=== PATIENT | female | born 1990 | race Caucasian/White ===

== ENCOUNTER 2022-12-16 11:28 | Outpatient (REF) | payer OTHER, SELFPAY ==
--- NOTE | 2022-12-16 10:45 | PAPFT_PTH ---
PATIENT: Lydia Buenrostro LOC: [facility] U#:[id number] AGE/SX: 32/F ROOM: RE12/16/[address]: Adia Tim NP : 1990 BED: DIS: 12/16/2022 SPEC #: [id number] RECD: 12/16/22 17:53 STATUS: DASHAWN REJane #: [id number] TERESA: 12/16/22 10:[address]: Adia Tim NP DEPT: [facility] Cytology RECD BY: Donna Porter ENTERED: 12/16/22 17:54 SP TYPE: PAPFT OTHR DR: Isaac Meade Tissues: 1 - CX/ENDOCX FOR PAP SMEARS Procedures: PAP THIN PREP/UVM Screening HPV DNA PROBE Comments: [id number]
== END 2022-12-16 11:29 | disposition home or self-care (01) ==
LOC: LBN 11:28
PROVIDERS: PCP Nurse Practitioner Family; Visit Provider Nurse Practitioner Women's Health
DX: Z12.4 Encounter for screening for malignant neoplasm of cervix (principal); Z11.51 Encounter for screening for human papillomavirus (HPV)
CPT/HCPCS: 88142; 87624

== ENCOUNTER 2023-10-16 01:37 | Outpatient (CLI) | payer OTHER, SELFPAY ==
[2023-10-16 12:16] LABS: Panorama Kit Sent via Fed Ex
[2023-10-16 12:31] LABS: Abs Immature Grans 0.02 10^3/uL (0.0-0.06); Absolute Basophil Count 0.05 10^3/uL (0.0-0.2); Absolute Eosinophil Count 0.03 10^3/uL (0.0-0.7); Absolute Lymphocyte Count 2.43 10^3/uL (1.2-3.4); Absolute Monocyte Count 0.45 10^3/uL (0.1-0.8); Absolute Neutrophil Count 5.13 10^3/uL (1.2-6.7); Basophils % 0.6; Eosinophils % 0.4; HCT 36.9 % (36.0-46.0); HGB 12.7 g/dL (11.2-15.7); Immature Grans % 0.2; MCH 31.1 pg (27.0-33.0); MCHC 34.4 % (32.0-36.0); MCV 90 fL (80-95); MPV 9.6 fL (8.0-11.0); Monocytes % 5.5; Neutrophils % 63.3; Platelet Count 241 10^3/uL (130-400); RBC 4.08 10^6/uL (3.93-5.22); RDW-SD 39.8 fL; WBC 8.11 10^3/uL (4.4-10.8)
[2023-10-16 13:21] LABS: FREE T4 1.19 ng/dL (0.76-1.46)
[2023-10-18 12:09] LABS: HIV-1/2 Ag & Ab Screen Negative (Negative)
[2023-10-19 09:05] LABS: Rubella IgG Ab (UVM) Positive (See Note); Varicella IgG Antibody Positive (See Note)
[2023-10-19 11:04] LABS: Hepatitis B Surface Ag Negative (Negative)
[2023-10-19 17:26] LABS: Hepatitis C Ab w Rflx HCV PCR Negative (Negative)
[2023-10-20 13:50] LABS: Syphilis IgG w/Reflex Nonreactive (Nonreactive)
== END 2023-10-16 01:38 | disposition home or self-care (01) ==
LOC: LBO 01:37
PROVIDERS: PCP Physician Assistant; Visit Provider Advanced Practice Midwife
DX: Z34.91 Encounter for supervision of normal pregnancy, unspecified, first trimester
CPT/HCPCS: 36415; 86787; 86803; 86850; 86900; 86901; 87340; 87389; 84439; 84443; 85025; 86762; 86780

== ENCOUNTER 2023-10-16 11:10 | Outpatient (REF) | payer OTHER, SELFPAY ==
[2023-10-16 13:49] LABS: *AMPHETAMINES SCREEN URINE Negative (Negative); *BARBITURATES SCREEN URINE Negative (Negative); *BENZODIAZEPINES SCREEN URINE Negative (Negative); Cannabinoids THC Negative (Negative); Cocaine Screen,Urine Negative (Negative); METHADONE URINE SCREEN Negative (Negative); OPIATES URINE SCREEN Negative (Negative)
[2023-10-16 13:50] LABS: Tricyclic Antidepressants Negative (Negative)
[2023-10-17 13:08] LABS: Chlamydia Result Negative (Negative); GC Result Negative (Negative)
[2023-10-22 07:38] LABS: Buprenorphine Negative ng/mL (Cutoff: 5.0); Norbuprenorphine Negative ng/mL (Cutoff: 2.5)
== END 2023-10-16 11:11 | disposition home or self-care (01) ==
LOC: LBN 11:10
PROVIDERS: PCP Physician Assistant; Visit Provider Advanced Practice Midwife
DX: Z34.91 Encounter for supervision of normal pregnancy, unspecified, first trimester
CPT/HCPCS: 80307; 80348; 87491; 87591; 87086

== ENCOUNTER 2023-11-17 02:37 | Outpatient (CLI) | payer OTHER, SELFPAY ==
[2023-11-17 14:36] LABS: TSH 0.28 uIU/mL (0.36-3.74)
[2023-11-17 16:45] LABS: FREE T4 1.28 ng/dL (0.76-1.46)
[2023-11-17 17:18] LABS: Lab Add On Test DONE
== END 2023-11-17 02:38 | disposition home or self-care (01) ==
LOC: LBO 02:37
PROVIDERS: PCP Physician Assistant; Visit Provider Advanced Practice Midwife
DX: E03.9 Hypothyroidism, unspecified (principal)
CPT/HCPCS: 36415; 84439; 84443

== ENCOUNTER 2023-12-29 03:39 | Outpatient (CLI) | payer OTHER, SELFPAY ==
[2023-12-29 08:17] LABS: TSH (W/Ref FT4) 0.09 uIU/mL (0.36-3.74)
[2023-12-29 08:33] LABS: FREE T4 1.31 ng/dL (0.76-1.46)
== END 2023-12-29 03:40 | disposition home or self-care (01) ==
LOC: LBO 03:40
PROVIDERS: PCP Physician Assistant; Visit Provider Advanced Practice Midwife
DX: E03.9 Hypothyroidism, unspecified (principal)
CPT/HCPCS: 36415; 84439; 84443

== ENCOUNTER 2024-02-09 05:18 | Outpatient (CLI) | payer OTHER, SELFPAY ==
[2024-02-09 10:53] LABS: HCT 34.2 % (36.0-46.0); HGB 11.5 g/dL (11.2-15.7); MCH 31.9 pg (27.0-33.0); MCHC 33.6 % (32.0-36.0); MCV 95 fL (80-95); MPV 9.7 fL (8.0-11.0); Platelet Count 221 10^3/uL (130-400); RBC 3.61 10^6/uL (3.93-5.22); RDW 12.6 % (11.7-14.6); RDW-SD 44.1 fL; WBC 7.38 10^3/uL (4.4-10.8)
[2024-02-09 11:00] LABS: Glucose,1 Hr (Glucola) 96 mg/dL (80-140)
[2024-02-10 09:35] LABS: Lab Add On Test DONE
[2024-02-10 10:51] LABS: TSH (W/Ref FT4) 0.05 uIU/mL (0.36-3.74)
== END 2024-02-09 05:19 | disposition home or self-care (01) ==
LOC: LBO 05:18
PROVIDERS: PCP Physician Assistant; Visit Provider Advanced Practice Midwife
DX: Z34.93 Encounter for supervision of normal pregnancy, unspecified, third trimester (principal); E03.9 Hypothyroidism, unspecified
CPT/HCPCS: 36415; 82950; 85027; 84439; 84443

== ENCOUNTER 2024-03-29 05:07 | Outpatient (CLI) | payer OTHER, SELFPAY ==
[2024-03-29 11:33] LABS: TSH (W/Ref FT4) 0.15 uIU/mL (0.36-3.74)
[2024-03-29 11:50] LABS: FREE T4 1.09 ng/dL (0.76-1.46)
== END 2024-03-29 05:08 | disposition home or self-care (01) ==
LOC: LBO 05:08
PROVIDERS: Advanced Practice Midwife; PCP Physician Assistant; Visit Provider Advanced Practice Midwife
DX: E03.9 Hypothyroidism, unspecified (principal)
CPT/HCPCS: 36415; 84439; 84443

== ENCOUNTER 2024-04-12 10:00 | Outpatient (REF) | payer OTHER, SELFPAY | END 2024-04-12 10:01 | disposition home or self-care (01) | LOC: LBN 10:00 | PROVIDERS: PCP Physician Assistant; Visit Provider Advanced Practice Midwife | DX: Z34.93 Encounter for supervision of normal pregnancy, unspecified, third trimester (principal); Z3A.36 36 weeks gestation of pregnancy; Z36.85 Encounter for antenatal screening for Streptococcus B | CPT/HCPCS: 87081 ==

== ENCOUNTER 2024-04-26 05:02 | Outpatient (CLI) | payer OTHER, SELFPAY ==
[2024-04-26 12:08] LABS: TSH (W/Ref FT4) 1.75 uIU/mL (0.36-3.74)
== END 2024-04-26 05:03 | disposition home or self-care (01) ==
LOC: LBO 05:03
PROVIDERS: Advanced Practice Midwife; PCP Physician Assistant; Visit Provider Advanced Practice Midwife
DX: E03.9 Hypothyroidism, unspecified (principal)
CPT/HCPCS: 36415; 84443

== ENCOUNTER 2024-05-11 12:46 | Outpatient (CLI) | payer OTHER, SELFPAY ==
[2024-05-11 14:16] VITALS: BP 114/74; PULSE 80
[2024-05-11 14:53] VITALS: BP 114/74; PULSE 80; TEMP 36.6
--- NOTE | 2024-05-11 14:58 | W.PM.PROGNOT ---
Date of Service Date of service: 05/11/24 Time of Service: 14:58 Objective Last Vital Signs Pulse 80 05/11/24 14:16 BP 114/74 05/11/24 14:16 Pocus Exam Limited OB Exam DATE OF EXAM:: 05/11/24 TIME OF EXAM:: 14:58 PROVIDER THAT PERFORMED THE STUDY: Nathaly Goldsmith Type of Exam: Pelvic OB Trans Abdominal REASON FOR EXAM: other (Postdates) indication: Postdates Exam Complete. DIFFERENTAL DIAGNOSES: Postdates, AARON performed equals 7.44 vertex presentation baby active and appropriate Time Spent with Patient Time Spent with Patient: <25 minutes Time was spent: preparing to see the patient(eg.review tests), obtaining and/or reviewing separately otained hiistory, ordering medications,tests, procedures and referring, communicating with other health health care marketing specialist
--- NOTE | 2024-05-11 15:04 | W.OBNST ---
Date of service: 05/11/24 Time of Service: 15:04 NST Evaluation Reason for NST Reasons for Nonstress Test: POSTDATES Gestational Age Gestational Age in Weeks and Days: 41 Weeks and 0Days Test and Monitor Explained Test/Monitor Explained: Test Explained, Monitor Explained and Patient Verbalized Understanding Vital Signs Blood Pressure: 114/74 Pulse: 80 Temperature: 97.9 F Urine Results Urine Protein: Negative Urine Ketones: Negative Urine Glucose: Negative Urine Blood: Negative NST Information Date on Monitor: 05/11/24 Time on Monitor: 14:13 Date off Monitor: 05/11/24 Time off Monitor: 14:36 Total Time on Monitor: 23 NST Interventions: PO Hydration NST Evaluation Patient States Movement: Present FHR Baseline: 145 Variability: Moderate 6-25 bpm Accelerations: 15x15 Decelerations: None NST Results: Reactive Note Ultrasound Done: N/A (see separate POCUS note from Dr. Goldsmith). NST Note Note: NST is reactive and reassuring. VE done per patient request 0.5/50/-3 posterior and soft. Baby is LOT. AARON 7.[address] Goldsmith. Will return in 4 days for repeat NST and further discussion on surveillance VS induction of labor. SHANNON NST Reviewed and Verified by: Rosa Maxwell
[2024-05-11 15:06] VITALS: BP 114/74; PULSE 80; TEMP 36.6
== END 2024-05-11 14:50 | disposition home or self-care (01) ==
LOC: BCD 12:50 → OBS 13:53
PROVIDERS: PCP Physician Assistant; Visit Provider Advanced Practice Midwife
DX: O48.0 Post-term pregnancy (principal); Z3A.41 41 weeks gestation of pregnancy
CPT/HCPCS: 59025

== ENCOUNTER 2024-05-15 08:37 | Outpatient (CLI) | payer OTHER, SELFPAY ==
[2024-05-15 13:06] VITALS: BP 115/80; PULSE 80; TEMP 36.6
[2024-05-15 13:18] VITALS: BP 115/80; PULSE 80
--- NOTE | 2024-05-15 14:24 | PDOC.NST_ITS ---
Date of service: 05/15/24 Time of Service: 14:24 NST Evaluation Reason for NST Reasons for Nonstress Test: POSTDATES Gestational Age Gestational Age in Weeks and Days: 41 Weeks and 4Days Test and Monitor Explained Test/Monitor Explained: Test Explained, Monitor Explained and Patient Verbalized Understanding Vital Signs Blood Pressure: 115/80 Pulse: 80 Temperature: 97.9 F NST Information Date on Monitor: 05/15/24 Time on Monitor: 13:10 Date off Monitor: 05/15/24 Time off Monitor: 13:32 Total Time on Monitor: 22 NST Interventions: PO Hydration Contraction Frequency: rare NST Evaluation Patient States Movement: Present FHR Baseline: 140 Variability: Moderate 6-25 bpm Accelerations: 15x15 Decelerations: None NST Results: Reactive Note Ultrasound Done: N/A. NST Note Note: Cvx barely reachable, 1/60% soft & very posterior, cephalic presentation LOP NST reactive, normotensive Pt declines IOL today, agrees to return in 3 days for NST and repeat AARON, will revisit considering IOL at this visit In reviewing DYLON and dating process, pt reports ovulation detection (LH surge) 08/15 with conception at that time, no coitus for over >7 days prior to that date. Conception occurring on or just after 08/15 would add 3-4 days for DYLON of 05/07- , EGA could be 41 wks today Lengthy discussion of placenta function/reserve rather than EGA as determining factor in health, pt and FOB verbalize understanding Reviewed pelvic posture, belly-forward positions and spinniningbabies exercises to encourage optimal position NST Reviewed and Verified by: Faina Ortega
[2024-05-15 14:28] VITALS: BP 115/80; PULSE 80; TEMP 36.6
== END 2024-05-15 14:26 | disposition home or self-care (01) ==
LOC: BCD 08:38 → OBS 13:05
PROVIDERS: PCP Physician Assistant; Visit Provider Advanced Practice Midwife
DX: O48.0 Post-term pregnancy (principal); Z3A.41 41 weeks gestation of pregnancy
CPT/HCPCS: 59025

== ENCOUNTER 2024-05-17 21:22 | Outpatient (CLI) | payer OTHER, SELFPAY ==
[2024-05-17 22:52] VITALS: BP 112/78; PULSE 65; RESP 18; TEMP 36.4
--- NOTE | 2024-05-17 23:06 | NUR.NOTE ---
Nursing Note:[id number] Pt arrived with ambulatory with reports small gush of fluid at home around 1999, mateo. Pt wore pantyliner to hospital, small discharge noted. Pt sat on stretcher for NST for 10-15 mins prior to assessment for rupture of membranes, no wetness on outside of vaginal and no pooling noted. ROM plus collected which pt tolerated well. Pt appears calm and cooperative, reports feeling slight cramping in lower abd with cxs only and rates pain 2/10 max.
[2024-05-17 23:14] LABS: ROM Plus Negative
--- NOTE | 2024-05-17 23:23 | NUR.NOTE ---
Nursing Note: Rosa Leigh updated via phone and order to discharge given. Pt to return in am for AARON with Dr Goldsmith.
--- NOTE | 2024-05-18 08:42 | W.OBNST ---
Date of service: 05/18/24 Time of Service: 08:42 NST Evaluation Reason for NST Reasons for Nonstress Test: POSTDATES Reason for NST Other: R/O SROM Gestational Age Gestational Age in Weeks and Days: 41 Weeks and 6Days Test and Monitor Explained Test/Monitor Explained: Test Explained Vital Signs Blood Pressure: 112/78 Pulse: 65 Temperature: 97.5 F Urine Results Urine Protein: Negative Urine Ketones: Positive Urine Glucose: Negative Urine Blood: Negative NST Information Date on Monitor: 05/17/24 Time on Monitor: 22:20 Date off Monitor: 05/17/24 Time off Monitor: 22:47 Total Time on Monitor: 27 NST Interventions: None Contraction Frequency: 4-7 NST Evaluation Patient States Movement: Present FHR Baseline: 140 Variability: Moderate 6-25 bpm Accelerations: 15x15 Decelerations: None NST Results: Reactive Note Ultrasound Done: N/A. NST Note Note: Lydia had a small gush of clear fluid at home. She put on a pad which was dry after. She was instructed to come to the center for NST and ROM plus. reactive NST and ROM plus and pooling negative. Signs of labor reviewed. She is returning in the morning for NST and AARON NST Reviewed and Verified by: Rosa Leigh
[2024-05-18 08:43] VITALS: BP 112/78; PULSE 65; TEMP 36.4
== END 2024-05-17 23:25 | disposition home or self-care (01) ==
PROVIDERS: PCP Physician Assistant; Visit Provider Advanced Practice Midwife
DX: O48.0 Post-term pregnancy (principal); Z3A.41 41 weeks gestation of pregnancy
CPT/HCPCS: 59025; 84112

== ENCOUNTER 2024-05-18 07:30 | Outpatient (CLI) | payer OTHER, SELFPAY ==
[2024-05-18 09:06] VITALS: BP 109/79; PULSE 60; TEMP 36.7
[2024-05-18 09:24] VITALS: BP 109/79; PULSE 60
--- NOTE | 2024-05-18 10:46 | W.OBNST ---
Date of service: 05/18/24 Time of Service: 10:46 NST Evaluation Reason for NST Reasons for Nonstress Test: POSTDATES Gestational Age Gestational Age in Weeks and Days: 42 Weeks and 0Days Test and Monitor Explained Test/Monitor Explained: Test Explained, Monitor Explained and Patient Verbalized Understanding Vital Signs Blood Pressure: 109/79 Pulse: 60 Temperature: 98.1 F NST Information Date on Monitor: 05/18/24 Time on Monitor: 09:00 Date off Monitor: 05/18/24 Time off Monitor: 09:25 Total Time on Monitor: 25 NST Evaluation Patient States Movement: Present FHR Baseline: 130 Variability: Moderate 6-25 bpm Accelerations: 15x15 Decelerations: None NST Results: Reactive Note Ultrasound Done: AARON (AARON checked by Paola Ortega CNM) Indication: Other (post dates) Total AARON: 11 Other Pertinent Findings: Presentation (vertex) Coding for AARON w/NST: Completed Exam. NST Note Note: Lilly is here for post dates testing. Options for induction of labor were reviewed. cervix 1 cms/25%/-2/soft/midline. Lilly would like to schedule induction of labor at this time. There is an ongoing induction at this time and will plan for induction tonight or tomorrow morning if unit staffing allows. NST Reviewed and Verified by: Rosa Leigh
[2024-05-18 10:49] VITALS: BP 109/79; PULSE 60; TEMP 36.7
[2024-05-18 16:30] VITALS: BP 123/88; PULSE 109
== END 2024-05-18 11:06 | disposition home or self-care (01) ==
LOC: BCD 07:32 → OBS 08:42
PROVIDERS: PCP Physician Assistant; Visit Provider Advanced Practice Midwife
DX: O48.0 Post-term pregnancy (principal); Z3A.41 41 weeks gestation of pregnancy
CPT/HCPCS: 59025; 76815

== ENCOUNTER 2024-05-19 08:46 | Inpatient (IN) | payer OTHER, SELFPAY ==
[2024-05-19] VITALS (10 sets, daily range): BP systolic 102–112; BP diastolic 67–76; PULSE 56–90; RESP 16–18; TEMP 36.3–37.1; O2SAT 97
--- NOTE | 2024-05-19 08:49 | W.OBNST ---
Date of service: 05/19/24 Time of Service: 08:49 NST Evaluation Reason for NST Reasons for Nonstress Test: POSTDATES Gestational Age Gestational Age in Weeks and Days: 42 Weeks and 1Days Test and Monitor Explained Test/Monitor Explained: Test Explained, Monitor Explained and Patient Verbalized Understanding Vital Signs Blood Pressure: 106/74 Pulse: 56 Temperature: 98.4 F NST Information Date on Monitor: 05/19/24 Time on Monitor: 08:02 Date off Monitor: 05/19/24 Time off Monitor: 08:20 Total Time on Monitor: 18 NST Interventions: PO Hydration NST Evaluation Patient States Movement: Present FHR Baseline: 130 Variability: Moderate 6-25 bpm Accelerations: 15x15 Decelerations: None NST Results: Reactive Note Ultrasound Done: N/A. NST Note NST Reviewed and Verified by: Faina Ortega
--- NOTE | 2024-05-19 08:50 | HPE_ITS ---
Date of service: 05/19/24 Time of Service: 08:50 Assessment and Plan Assessment and plan (1) Encounter for induction of labor: Status: Acute Assessment and plan: A: 34 yo G1 @ 42 wks, category 1 tracing IOL via cervical ripening, infante score=5 AARON yesterday 11.7, Rh+, Rubella Immune Increased risk for SD & PPH d/t IOL process, TWG >40 lb & postdate status P: Admit to L&D, CBC and T&S Misoprostel per guidelines, R&B reviewed in detail with pt & FOB Pt desires unmedicated labor/ experience Anticipate BRADLEY, Dr. Goldsmith available for consultation (2) Post-dates : Status: Acute Assessment and plan: By ovulation detection/conception is 41+5 wks today, by LMP is 42+1 wks Qualifiers: Post-term type: 40-42 weeks gestation Qualified Code(s): O48.0 - Post-term OB-HPI Labor/Delivery History of Present Illness Reason for Visit: NST Chief Complaint: Scheduled Induction of Labor Indication for Induction: Post Date. DYLON Calculator Estimated Delivery Date Method Current WG Current Estimate 05/04/24 LMP (Certain) 42w 1d Other Estimates 05/03/24 Ultrasound #1 42w 2d History of Present Expected Delivery Route/Plan - CNM FOB/ - Roberth Buenrostro (first child) BG Cruz Interested in using tub for labor/, Roberth hopes to help catch. GBS negative Specific Issues/Plan 1. cfDNA: low risk x5 female, waiting to hear from insurance about CF/SMA screening, Declines AFP. 2. Pt born by scheduled C/S, her wt was 8'13; FOB born 34 wks 3. Hypothyroidism, levothyroxine 100 mcg, initial TSH-7.10, dose increased to 150 mcg. 3a. Repeat after 11/16/23 -TSH 0.26 FT4-1.28, schedule repeat at 22 weeks 3b. 12/29-TSH 0.09/ FT4 1.31, repeat at 28 wks: low at 0.05, per MD reduce to 125 mcg, recheck TSH in 4-6 wks (mid-March) 3c. TSH 0.15/FT4: per MD reduce to 100mcg and recheck 38-39 weeks: TSH 1.75 Assessment: History Reviewed & Current Informed Consent Informed Consent: Induction of Labor and Risk,Benefits,Alternatives Discussed Review of Systems Narrative: ROS completed and noncontributory other than HPI PFSH All Active Problems (Updated 05/19/24 @ 08:57 by Faina Ortega) Post-dates (Acute) Encounter for induction of labor (Acute) (Acute) Hypothyroid (Chronic) Medical History (Updated 05/19/24 @ 08:57 by Faina Ortega) Family history of thyroid disease in mother Surgical History Hx of tonsillectomy 2014 Family History Brother Diabetes type 1 Paternal Aunt Lupus Father , 46 Kidney failure suspect autoimmune Mother Thyroid disease Maternal Grandfather Stroke Social History Smoking/Tobacco Use Status: Never Smoking risk assessment performed?: Yes Alcohol Intake: current Alcohol Intake frequency: a few times a month Drug use: Never Household members: significant other current occupation: PA at [employer] Sexually active: Yes Do you think of yourself as: straight/heterosexual Current gender identity: female Female Reproductive History Menstrual control method: none History History 1 Para 0 Hx # Term Pregnancies 0 Multiple births 0 Hx # Pregnancies 0 Ectopic pregnancies 0 AB induced 0 Hx Number of Living Children 0 AB spontaneous 0 Meds Allergies and Home Medications Allergies Allergy/AdvReac Type Severity Reaction Status Date / Time Penicillins Allergy Skin Rash Verified 05/11/24 14:41 Sulfa (Sulfonamide Allergy Skin Rash Verified 05/11/24 14:41 Antibiotics) Home Medications Medication Instructions Recorded Confirmed Type vitamin#30 30 mg iron-10 cap PO 09/01/23 05/11/24 History mg iron-folic acid 1 mg-omg3 capsule levothyroxine 125 mcg tablet 100 mcg (0.8 x 125 mcg) PO DAILY 03/29/24 05/19/24 Rx #30 tabs levothyroxine 100 mcg tablet 100 mcg PO DAILY 05/19/24 05/19/24 History Exam Physical Exam Vital Signs Reviewed: Yes Constitutional Constitutional: no acute distress, average body habitus and cooperative Detailed Labor and Delivery Exam Dilation: 2 Effacement (%): 60 station: -3 Position: ROP Cervix position: mid Consistency: medium INFANTE Score(Cervical Ripeness Score): 5 Amniotic Membrane Status: Intact Monitor Mode: External Contraction Frequency(min): irregular Contraction Intensity: Mild Fetus A Heart Rate Baseline: 130 Monitor Accelerations: 15 X 15 Monitor Decelerations: None Variability: Moderate (6-25 BPM) Categories: Category I Est. Weight: 7 lb 11.459 oz Est. Weight: 3500 gms HEENT Exam HEENT Exam: Normal Neck Exam Neck Exam: Normal Chest/Brest/Axilla Exam Chest Exam: Normal Breast Exam Breast Exam: Not Done Respiratory Exam Respiratory Exam: Normal Cardiovascular Exam Cardiovascular Exam: Normal Abdominal Exam Abdominal Exam: Normal (gravid, S=D, nontender) Rectal Exam Rectal Exam: Normal Exam Exam: Normal Extremities Exam Extremities Exam: Normal Back/Spine/Pelvis Exam Back Exam: Normal Pelvis Adequate: Yes Skin Exam Skin Exam: Normal Neurological Exam Neurological Exam: Normal Psychiatric Exam Psychiatric Exam: Normal Results Results Group Beta Strep: Negative Blood Type: AB+ Rubella Status: Immune Varicella Immunity: Immune Risk Assessment Risk for Shoulder Dystocia Historical/Initial OB: NEGATIVE FOR: Pelvic Abnormality, Pre- BMI>30, Previous Shoulder Dystocia or Previous Macrosomia 36 Weeks: NEGATIVE FOR: Current Gestational DM, EFW>4500gms or Maternal Weight Gain>40lbs 40 Weeks: POSTIVE FOR: Maternal Weight Gain >40lb and Post Dates Increased Risk?: Yes Delivery Plan @ 40 wks: NST and AARON at 41 weeks KH Risk for Pre-Eclampsia Date Initiated/Initials: not indicated, JK Yes, if one or more: NEGATIVE FOR: Hx Pre-E/Gest HTN, Chronic HTN, Multiple Gestation, Pre-gestational DM, Renal Disease, Systemic Lupus or APA Syndrome Yes, if 2 or more: POSITIVE FOR: Nulliparity; NEGATIVE FOR: Age>= 35 yrs, >10yr btwn pregnancies, BMI>30, ethinicty, Mother/Sister w/ Pre-E or Previous IUGR Risk for Post- Hemorrhage Initial: NEGATIVE FOR: Multiple Gestation, Previous PPH, Known Clotting Deficiency, Grand Multiparity or Anticoagulation 40 Weeks: NEGATIVE FOR: Anemia, hgb<10, Low platelets (thrombocytopenia), Gestation HTN or Pre-E, Polyhydraminios or EFW>4500gms At Risk?: Yes Counseled re: Active Management: Yes Risks Reviewed Risks Reviewed Upon Admission: Yes
[2024-05-19] MEDS: miSOPROStol 25 MCG TAB 50 MCG PO (08:57)
[2024-05-19 09:23] LABS: HCT 31.1 % (36.0-46.0); HGB 10.4 g/dL (11.2-15.7); MCH 30.2 pg (27.0-33.0); MCHC 33.4 % (32.0-36.0); MCV 90 fL (80-95); MPV 11.6 fL (8.0-11.0); Platelet Count 200 10^3/uL (130-400); RBC 3.44 10^6/uL (3.93-5.22); RDW 13.2 % (11.7-14.6); RDW-SD 43.4 fL; WBC 5.77 10^3/uL (4.4-10.8)
--- NOTE | 2024-05-19 13:38 | W.PM.OBNL1 ---
Date of service: 05/19/24 Time of Service: 13:38 Informed Consent Informed Consent: Induction of Labor and Risk,Benefits,Alternatives Discussed Contractions Contraction Frequency(min): q2-4 Contraction Duration(sec): 50-70 Intensity: Mild Fetus A Heart Rate Baseline: 130 Variability: Moderate (6-25 BPM) Categories: Category I Amniotic Membrane Status: Intact Assessment and Plan Assessment and plan (1) Encounter for induction of labor: Status: Acute Assessment and plan: A: IOL postdates, cervical ripening in progress, latent phase category 1 tracing, tolerating PO intake well P: Hold next miso dose d/t frequent uterine contrx which pt appreciates Ambulate and reassess in 2 hrs Subjective Interval history since last seen: Increased sensation of tightening abd, lower uterine cramping, not very uncomfortable Results Hemoglobin/Hematocrit: Hgb 10.4 g/dL (11.2-15.7) L 05/19/24 09:10 Hct 31.1 % (36.0-46.0) L 05/19/24 09:10 Abnormal Lab Findings: Abnormal Labs 05/19/24 09:10 RBC 3.44 L Hgb 10.4 L Hct 31.1 L MPV 11.6 H
--- NOTE | 2024-05-19 15:14 | W.PM.OBNL1 ---
Date of service: 05/19/24 Time of Service: 15:15 Informed Consent Informed Consent: Induction of Labor and Risk,Benefits,Alternatives Discussed Pelvic Exam Dilation: 3 Effacement (%): 60 station: -2 Cervix Position: mid Consistency: soft BISHOPS Score(Cervical Ripeness Score): 7 Contractions Monitor Mode: External Contraction Frequency(min): q2-4 Intensity: Mild Fetus A Monitor: External (US) Heart Rate Baseline: 130 Variability: Moderate (6-25 BPM) Categories: Category I Accelerations: Present Decelerations: None Amniotic Membrane Status: Intact Assessment and Plan Assessment and plan (1) Encounter for induction of labor: Status: Acute Assessment and plan: A: López score now 7 with cvx @ 3cm dilation, category 1 tracing IOL via cervical ripening, latent phase P: 2nd miso dose of 25 mcg PO FOB went home briefly, plan AROM upon his return Subjective Interval history since last seen: Pt went outside for fresh air and ambulation for an hour, states she feels relaxed though cramping continues, no bleeding or ROM.
[2024-05-19] MEDS: miSOPROStol 50 MCG TAB 25 MCG PO (15:19)
--- NOTE | 2024-05-19 17:15 | W.PM.OBNL1 ---
Date of service: 05/19/24 Time of Service: 17:15 Informed Consent Informed Consent: Induction of Labor and Risk,Benefits,Alternatives Discussed Pelvic Exam Dilation: 3.5 Effacement (%): 70 station: -2 Cervix Position: mid Consistency: soft BISHOPS Score(Cervical Ripeness Score): 8 Contractions Contraction Frequency(min): q2-4 Intensity: Mild/Moderate Fetus A Monitor: External (US) Heart Rate Baseline: 130 Variability: Moderate (6-25 BPM) Categories: Category I Amniotic Membrane Status: Ruptured Rupture Method: Artifical Amniotic Fluid: Clear Amount: moderate Date of Membrane Rupture: 05/19/24 Time of Membrane Rupture: 17:06 Assessment and Plan Assessment and plan (1) Encounter for induction of labor: Status: Acute Assessment and plan: A: Consent given for AROM, cvx 3-4 cm, duran score=8 AROM accomplished for clear fluid, category 1 tracing P: Observe for progress into active labor Comfort measures and pain management as pt desires Intermittent FHT per guidelines, expectant management Will consider indication for pitocin augmentation Anticipate Subjective Interval history since last seen: Pt reports increased cramping which she feels in her low back, had one episode of loose stool.
--- NOTE | 2024-05-19 22:29 | W.PM.OBNL1 ---
Date of service: 05/19/24 Time of Service: 22:29 Pelvic Exam Dilation: 5 Effacement (%): 100 station: -2 (well applied to cvx) Cervix Position: anterior Consistency: soft Contractions Monitor Mode: Palpation Contraction Frequency(min): q2-3 Contraction Duration(sec): 60-70 Intensity: Moderate/Strong Fetus A Monitor: Doppler Heart Rate Baseline: 145 FHR Rhythm: Regular Characteristics: Normal Amniotic Membrane Status: Ruptured Assessment and Plan Assessment and plan (1) Encounter for induction of labor: Status: Acute Assessment and plan: A: Active labor after AROM, primipara Reassuring FHT per intermittent doppler FHT checks by guidelines P: Pt entered tub and finds the water immersion helpful Discussed pitocin augmentation, pt declines at this time Continue to monitor for progression in labor Objective Vital Signs Reviewed: Yes Objective Narrative Objective Narrative: afebrile, normotensive FOB providing effective support tolerating sips of water coping well with contractions Subjective Interval history since last seen: Painful frequent contractions, nausea with bouts of vomiting. Pt has been ambulating, in and out of the shower, unable to lie down to rest, requests use of the tub.
[2024-05-20] VITALS (13 sets, daily range): BP systolic 96–156; BP diastolic 60–80; PULSE 64–90; RESP 17–20; TEMP 36.4–37; O2SAT 96–100
[2024-05-20] MEDS: miSOPROStol 200 MCG TAB 600 MCG SL (01:05)
[2024-05-20] MEDS: Oxytocin/Normal Saline 30 UNIT/500 ML BAG 95 UNITS IV (01:10)
[2024-05-20] MEDS: Methylergonovine 0.2 MG/ML VIAL (01:10)
[2024-05-20] MEDS: Benzocaine 20% 60 ML CAN (01:45)
--- NOTE | 2024-05-20 01:45 | OBVDS_ITS ---
Date of service: 05/20/24 Time of Service: 01:45 OB Labor/ Delivery Information Baby A Delivery Delivery Method: Spontaneaous Presentation: Cephalic Cephalic Position: Vertex Vertex Position: Left Occipital Anterior Breech Position: N/A Cord Description-Baby A: 3 Vessels, Nuchal Cord (loose reduced overhead) and Reduced Amniotic Fluid: Clear Estimated Blood Loss: 750 QBL Delivery Outcome: Liveborn Transferred: Remains with Mother Note: Pt rested in tub after exam of 5 cm, FHT's per doptone 140-155, then pt became restless, exited tub and ambulated around room then returned to shower, episode of vomiting and bloody show noted @ 2300 with involuntary urges to bear down at peak of some contractions. SVE while pt was sitting on toilet for comfort found complete dilation and vtx @+3, 2nd stage huddle completed with risks of SD and PPH identified d/t postdates and induction process therefore appropriate preparations were put in place. FHT's remained 140-150 per doptone check. Pt eventually moved to bed and found she preferred H&K for pushing, of a vigorous and visually LGA female infant over attempted intact perineum, loose nuchal cord easily reduced overhead, anterior shoulder delivered smoothly with gentle upward traction of head and posterior shoulder came easily, body delivered into FOB's hands who held baby while pt turned over to semi-fowlers, baby to mother's arms, apgars 7/9. Pitocin 10 units given IM, cord clamped and cut by FOB, cord blood collected, placenta partially delivered with a large gush of blood, vigorous and continuous fundal massage with gentle cord traction resulted in Vieira mechanism intact with 3VC. Brisk bleeding which was anticipated did occur and bimanual compression initiated after manual uterine sweep for clots resulting in control of bleeding over 3 minutes. Pt given 600 mcg misoprostel PO and Methergine 0.2 mg IM, RN requested to start IV access and begin pitocin IV bolus, fundus firm below umbilicus and lochia reduced to scant amount. 2nd degree perineal laceration repaired under topical benzocaine anesthetic aerosol, vaginal sweep for handful of clots completed x2, additional vaginal inspection did not find any additional lacerations. Pt remained hemodynamically stable throughout management of third stage. Will follow with a single dose of antibiotic prophylaxis due to uterine exploration. Strong family bonding noted, baby latched and by 30 minutes of age, weight 4490 gms. Providers Nurse Chipper Machine Operator: Faina Ortega Nurse: Myesha Salinas Nurse: Waleska Fontenot Labor/Delivery Information Number of Babies in Womb: 1 Steroids Given: None Reason Steroids Not Administered: N/A Group Beta Strep: Negative Antibiotics Administered: No Rubella Status: Immune Blood Type: AB+ Varicella Immunity: Immune Shoulder Dystocia: No Stages of Labor Onset of Labor Date: 05/19/24 Onset of Labor Time: 22:00 Complete Dilatation Date: 05/20/24 Complete Dilatation Time: 00:05 Labor - Stage 1 Duration: 2 hours and 5 minutes ROM Baby A: 05/19/24 ROM Baby A: 17:15 ROM Total Time- Baby A: [id number] Infant Delivery Date-Baby A: 05/20/24 Delivery Time-Baby A: 00:50 Labor Stage 2 Duration: 45 minutes Placenta Delivery Date-Baby A: 05/20/24 Placenta Delivery Time-Baby A: 01:03 Labor-Stage 3 Duration: 13 minutes Total Length of Labor-Baby A: 2 hours and 50 minutes Placenta Status: Delivered Baby A Gender: Female Gestational Status: Postterm (>42 wks) Gestational Age in Weeks/Days: 42 Weeks and 2 Days weight: 9 lb 14.38 oz Weight Comment: 4490 gms Score-1 Minute Interval(Baby A) Heart Rate-1 minute: 100 BPM or Greater Respiratory Effort- 1 minute: Slow Respiration/Weak Cry Muscle Tone-1 minute: Minimal Flexion/Extension Reflex Response-1 minute: Prompt Response Color-1 minute: Bluish Hands or Feet Total Score-1 minute: 7 Score-5 Minute Interval(Baby A) Heart Rate- 5 minute: 100 BPM or Greater Respiratory Effort-5 minute: Spontaneous/Strong Cry Muscle Tone-5 minute: Active Movement Reflex Response-5 minute: Prompt Response Color-5 minute: Bluish Hands or Feet Total Score- 5 minute: 9 Hemorrrhage Note Hemorrhage Recognized Date Hemorrhage Recognized: 05/20/24 Call for Help Date: 05/20/24 Time: 01:03 2nd RN in Room Date: 05/20/24 Time: 00:05 2nd RN: Waleska Fontenot Provider in Room Date: 05/20/24 Time: 00:00 Provider: Faina Ortega Bimanual Uterine Compression Date: 05/20/24 Time: 01:06 RN Lamination Assembler Notified Date: 05/20/24 Time: 01:10 RN Lamination Assembler on Floor Date: 05/20/24 Time: 00:15 Lamination Assembler: Karon Lawton Medication Administration 1st Administration: Medication: Oxytocin 10 U IM Administration Date: 05/20/24 Administration Time: 00:53 2nd Administration: Medication: Misoprostol 600 mcg PO Administration Date: 05/20/24 Administration Time: 01:05 3rd Administration: Medication: Methergine 0.2 mg IM Administration Date: 05/20/24 Administration Time: 01:10 4th Administration: Medication: Oxytocin 30U/500 ml IV Administration Date: 05/20/24 Administration Time: 01:10 Total Blood Loss for PPH Event Quantitative Blood Loss: 750
[2024-05-20] MEDS: Acetaminophen 325 MG TAB 650 MG PO ×2 (02:12→15:19)
[2024-05-20] MEDS: Ibuprofen 600 MG TAB PO ×2 (02:12→15:19)
[2024-05-20] MEDS: AZITHROMYCIN 500 MG in Normal Saline 250 ML 250 MG IVPB (03:44)
[2024-05-20] MEDS: Levothyroxine 100 MCG TAB PO (05:30)
[2024-05-20] MEDS: Dibucaine 1% 28 GM TUBE TP ×2 (05:42→21:00)
[2024-05-20] MEDS: Hamamelis Leaf/Glycerin 100 EACH BOX PR (05:43)
[2024-05-20] MEDS: Lactated Ringers 1,000 ML 125 ML IV (05:44)
[2024-05-20] MEDS: Methylergonovine 0.2 MG TAB PO ×3 (08:29→20:08)
[2024-05-20] MEDS: Normal Saline Flush 10 ML SYR IVP (20:08)
[2024-05-21] MEDS: Acetaminophen 325 MG TAB 650 MG PO ×2 (03:46→11:53)
[2024-05-21] MEDS: Ibuprofen 600 MG TAB PO ×2 (03:46→11:53)
[2024-05-21 06:22] LABS: HCT 27.3 % (36.0-46.0); MCH 30.4 pg (27.0-33.0); MCV 92 fL (80-95); MPV 10.8 fL (8.0-11.0); Platelet Count 197 10^3/uL (130-400); RBC 2.96 10^6/uL (3.93-5.22); RDW 13.6 % (11.7-14.6); RDW-SD 45.6 fL; WBC 9.36 10^3/uL (4.4-10.8)
--- NOTE | 2024-05-21 08:24 | DSE_ITS ---
Date of service: 05/21/24 Time of Service: 08:24 DS: Diagnosis Discharge Diagnosis (1) Encounter for induction of labor: Status: Resolved Asessment and Plan: Caring for baby independently. Pain is managed well with oral analgesics. Voiding without difficulty. well. A - stable mother and baby , Post day 1 P - Discharge to home today. Routine post instructions. [facility] (2) Anemia due to blood loss: Status: Acute Asessment and Plan: Hgb 9.0/27.3, Iron supplement daily and multivitamin recommended, Discharge Plan Disposition Patient Disposition: Home Condition: Good Discharge Details Reason For Visit: PostDates Induction Admit Date/Time: 05/19/24 08:46 Admit Provider: Faina Ortega Attending Provider: Faina Ortega Primary Care Provider: Lydia Baez Home Meds and New Rx's Prescriptions: No Action PNV #[id number] 30 mg iron-10 mg iron-1 mg capsule PO levothyroxine 125 mcg tablet 100 mcg PO DAILY Qty: 30 5RF levothyroxine 100 mcg tablet 100 mcg PO DAILY Patient Comments: @ 0600 Discharge Instructions Activity:: Activity as Tolerated Equipment/Supplies:: Blood Glucose Monitor Diet:: As Tolerated Discharge Orders Discharge Orders: Discharge Order (Routine); Ordered 05/21/24 Ordered By: Rosa Leigh OB:DS Summary Summary Vaginal Delivery Method: Spontaneaous Episiotomy Description: None Laceration Extension: Second Degree Contraception Discussed Contraception Discussed: Yes Contraceptive Plan: Foam/Condoms, [place] Gender-Baby A: Female weight: 9 lb 14.38 oz Gender-Baby B: Female Weight-Baby B: 9 lb 14.38 oz Status at Discharge Functional status at discharge: independent ambulation Overall status at discharge: patient is back to baseline Mental Status: mental status grossly normal Speech and Movement: speech and movement normal Mood: congruent mood Affect: normal affect Quality:SDOH Health Related Social Needs: No Data to Display Exam Physical Exam Vital signs: Temp Pulse Resp BP Pulse Ox 98.2 F 64 17 112/72 100 05/20/24 20:15 05/20/24 20:15 05/20/24 20:15 05/20/24 20:15 05/20/24 20:15 Vital Signs Reviewed: Yes Constitutional Constitutional: no acute distress HEENT Exam HEENT Exam: Normal Neck Exam Neck Exam: Normal Respiratory Exam Respiratory Exam: Normal Cardiovascular Exam Cardiovascular Exam: Normal Fundal Exam Fundus: Below Umbilicus and Firm Rectal Exam Rectal Exam: Normal Extremities Exam Extremity Exam: Normal Skin Exam Skin Exam: Normal Psychiatric Exam Psychiatric Exam: Normal [facility] All Active Problems (Updated 05/21/24 @ 08:27 by Rosa Leigh CNM) Anemia due to blood loss (Acute) Term of female (Acute) (Acute) Hypothyroid (Chronic) Medical History (Updated 05/21/24 @ 08:27 by Rosa Leigh CNM) Family history of thyroid disease in mother Surgical History Hx of tonsillectomy 2015 Family History Brother Diabetes type 1 Paternal Aunt Lupus Father , 46 Kidney failure suspect autoimmune Mother Thyroid disease Maternal Grandfather Stroke Social History Smoking/Tobacco Use Status: Never Smoking risk assessment performed?: Yes Alcohol Intake: current Alcohol Intake frequency: a few times a month Drug use: Never Household members: significant other Housing: house 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 Sexually active: Yes Do you think of yourself as: straight/heterosexual Current gender identity: female Do you feel safe at home: Yes Do you feel safe in your relationship?: Yes Female Reproductive History Menstrual control method: none History History 1 Para 0 Hx # Term Pregnancies 0 Multiple births 0 Hx # Pregnancies 0 Ectopic pregnancies 0 AB induced 0 Hx Number of Living Children 0 AB spontaneous 0 DS: Data Vitals/I&O Vitals and I&O: Vital Signs Temperature 98.2 F 05/20/24 20:15 Temperature 98.4 F 05/19/24 08:50 Temperature Source Oral 05/20/24 20:15 Pulse 64 05/20/24 20:15 Pulse 56 05/19/24 08:50 Pulse Rhythm Regular 05/20/24 20:15 Respiratory Rate 17 05/20/24 20:15 Respiratory Depth Normal 05/20/24 20:15 Blood Pressure 112/72 05/20/24 20:15 Blood Pressure 106/74 05/19/24 08:50 Blood Pressure Mean 85 05/20/24 20:15 Pulse Oximetry 100 05/20/24 20:15 Oxygen Delivery Method Room Air 05/19/24 08:59 Oxygen Flow Rate 0 05/19/24 08:59 Pain Level 4 05/20/24 02:12 Comment Pt eating popsicle. 05/19/24 14:34 Intake & Output 05/20/24 05/20/24 05/21/24 11:59 23:59 11:59 Intake Total 750 / 1750 1000 / 1750 Output Total 2500 / 2500 Balance -1750 / -750 1000 / -750 Intake: IV 750 / 1750 1000 / 1750 Output: Urine 2500 / 2500 Other: Urine Color Pale Yellow Data Completed and Pending Labs on day of discharge: Labs from last 24 hours 05/21/24 06:14 WBC 9.36 RBC 2.96 L Hgb 9.0 L Hct 27.3 L MCV 92 MCH 30.4 MCHC 33.0 RDW 13.6 Plt Count 197 MPV 10.8
[2024-05-21 08:45] VITALS: BP 112/77; PULSE 66; RESP 16; TEMP 36.4; O2SAT 99
[2024-05-21] MEDS: Levothyroxine 100 MCG TAB PO (08:56)
== END 2024-05-21 12:30 | disposition home or self-care (01) | DRG 806 ==
LOC: BCD 05-20 01:28 → OBS 05-20 01:28
PROVIDERS: Admitting Provider Advanced Practice Midwife; PCP Physician Assistant; Visit Provider Advanced Practice Midwife
DX: O48.0 Post-term pregnancy; D62 Acute posthemorrhagic anemia; Z37.0 Single live birth; O72.1 Other immediate postpartum hemorrhage; Z3A.42 42 weeks gestation of pregnancy; O69.81X0 Labor and delivery complicated by cord around neck, without compression, not applicable or unspecified; O70.1 Second degree perineal laceration during delivery; O99.284 Endocrine, nutritional and metabolic diseases complicating childbirth; E03.9 Hypothyroidism, unspecified; O90.81 Anemia of the puerperium
CPT/HCPCS: 36415; 85027; 86850; 86900; 86901; 59025; 59200; J0456; J2210; J3490

== ENCOUNTER 2025-09-12 14:08 | Outpatient (REF) | payer OTHER, SELFPAY ==
[2025-09-12 15:45] LABS: Lab Add On Test DONE
[2025-09-12 17:08] LABS: Cannabinoids THC Negative (Negative); METHADONE URINE SCREEN Negative (Negative)
[2025-09-18 13:53] LABS: Fentanyl Scr w/Rfx Confirm Negative ng/mL (<1)
== END 2025-09-12 14:09 | disposition home or self-care (01) ==
LOC: LBN 14:08
PROVIDERS: PCP Nurse Practitioner Family; Visit Provider Advanced Practice Midwife
DX: Z34.91 Encounter for supervision of normal pregnancy, unspecified, first trimester (principal)
CPT/HCPCS: 80307; 80348; 87086

== ENCOUNTER 2025-09-19 01:21 | Outpatient (CLI) | payer OTHER, SELFPAY ==
[2025-09-19 16:10] LABS: Abs Immature Grans 0.03 10^3/uL (0.0-0.06); HCT 38.1 % (36.0-46.0); HGB 12.7 g/dL (11.2-15.7); Immature Grans % 0.4 %; MCH 30.1 pg (27.0-33.0); MCHC 33.3 % (32.0-36.0); MCV 90 fL (80-95); MPV 9.5 fL (8.0-11.0); Platelet Count 262 10^3/uL (130-400); RBC 4.22 10^6/uL (3.93-5.22); RDW 12.3 % (11.7-14.6); RDW-SD 40.2 fL; WBC 6.67 10^3/uL (4.4-10.8)
[2025-09-19 16:30] LABS: Hemoglobin A1C 5.1 % (<5.7)
[2025-09-19 17:03] LABS: TSH (W/Ref FT4) 10.11 uIU/mL (0.36-3.74)
[2025-09-20 11:00] LABS: Rubella IgG Ab (UVM) Positive (See Note)
[2025-09-20 11:41] LABS: Hepatitis C Ab w Rflx HCV PCR Negative (Negative)
[2025-09-20 13:03] LABS: HIV-1/2 Ag & Ab Screen Negative (Negative)
[2025-09-21 13:23] LABS: Syphilis IgG w/Reflex Nonreactive (Nonreactive)
== END 2025-09-19 01:22 | disposition home or self-care (01) ==
PROVIDERS: Advanced Practice Midwife; PCP Nurse Practitioner Family; Visit Provider Advanced Practice Midwife
DX: E03.9 Hypothyroidism, unspecified; O09.291 Supervision of pregnancy with other poor reproductive or obstetric history, first trimester; Z34.91 Encounter for supervision of normal pregnancy, unspecified, first trimester
CPT/HCPCS: 36415; 86787; 86803; 86850; 86900; 86901; 87340; 87389; 83036; 84439; 84443; 85025; 86762; 86780